=== PATIENT | male | born 1985 | race Caucasian/White ===

== ENCOUNTER 2019-09-08 15:44 | Emergency (ER) | payer OTHER ==
[~2019-09-08] VITALS: Ht 170.2 cm; Wt 86.2 kg
[~2019-09-08 15:44] MED LIST: ACETAMINOPHEN-1 EAC1 PO; AUGMENTIN 875-1 EACH PO; CELEXA10 MG PO; CLEOCIN HCL150 MG PO; CLEOCIN HCL300 MG PO; DICLOFENAC SODI75 MG PO; HYDROCODONE-AP1 EAC6 PO; IBUPROFEN 800800 M1 PO; LIDOCAINE VISC100 M1 SWISH&SPIT; ROBAXIN 750 MG750 M1 PO; WELLBUTRIN SR100 MG PO
[2019-09-08 15:50] VITALS: BP 113/75
[2019-09-08] MEDS ORDERED: LIDOCAINE VISC100 ML SWISH&SPIT (16:27)
[2019-09-08] MEDS ORDERED: AMOXICILLIN 50500 MG PO (16:27)
== END 2019-09-08 16:44 | disposition home or self-care (01) ==
LOC: M.ERS 15:44
DX: K04.7 Periapical abscess without sinus (principal); G89.29 Other chronic pain; M54.9 Dorsalgia, unspecified; M19.90 Unspecified osteoarthritis, unspecified site; F17.200 Nicotine dependence, unspecified, uncomplicated

== ENCOUNTER 2019-11-06 20:43 | Emergency (ER) | payer OTHER ==
[~2019-11-06] VITALS: Ht 170.2 cm; Wt 83.9 kg
[~2019-11-06 20:43] MED LIST changes: +AMOXICILLIN 50500 MG PO; +LIDOCAINE VISC100 ML SWISH&SPIT
[2019-11-06] MEDS ORDERED: TYLENOL WITH CO1 TA1 PO (22:17)
[2019-11-06] MEDS ORDERED: MELOXICAM15 MG PO (22:17)
[2019-11-06 22:58] VITALS: BP 102/67
== END 2019-11-06 22:58 | disposition home or self-care (01) ==
LOC: M.ERS 20:43
DX: S93.691A Other sprain of right foot, initial encounter (principal); G89.29 Other chronic pain; M54.9 Dorsalgia, unspecified; M19.90 Unspecified osteoarthritis, unspecified site; V43.52XA Car driver injured in collision with other type car in traffic accident, initial encounter; Y92.89 Other specified places as the place of occurrence of the external cause; Y93.89 Activity, other specified; Y99.8 Other external cause status

== ENCOUNTER 2019-11-10 19:37 | Emergency (ER) | payer OTHER ==
[~2019-11-10] VITALS: Ht 170.2 cm; Wt 84.4 kg
[~2019-11-10 19:37] MED LIST changes: +MELOXICAM15 MG PO; +TYLENOL WITH CO1 TA1 PO
[2019-11-10] MEDS ORDERED: NORCO 5-325 TA1 EAC1 PO (20:40)
[2019-11-10 20:51] VITALS: BP 124/66
== END 2019-11-10 20:51 | disposition home or self-care (01) ==
LOC: M.ERS 19:37
DX: M79.671 Pain in right foot (principal); M25.551 Pain in right hip; M25.561 Pain in right knee; G89.29 Other chronic pain; M54.9 Dorsalgia, unspecified; M19.90 Unspecified osteoarthritis, unspecified site; F17.200 Nicotine dependence, unspecified, uncomplicated

== ENCOUNTER 2020-03-17 18:03 | Emergency (ER) | payer OTHER ==
[~2020-03-17] VITALS: Ht 170.2 cm; Wt 83.9 kg
[~2020-03-17 18:03] MED LIST changes: +NORCO 5-325 TA1 EAC1 PO
[2020-03-17] MEDS ORDERED: CLEOCIN HCL150 MG PO (18:20)
[2020-03-17 18:24] VITALS: BP 145/83
== END 2020-03-17 18:25 | disposition home or self-care (01) ==
LOC: M.ERS 18:03
DX: K04.7 Periapical abscess without sinus (principal); G89.29 Other chronic pain; M19.90 Unspecified osteoarthritis, unspecified site; M19.019 Primary osteoarthritis, unspecified shoulder; Z79.899 Other long term (current) drug therapy

== ENCOUNTER 2020-03-20 22:40 | Emergency (ER) | payer OTHER ==
[~2020-03-20] VITALS: Ht 170.2 cm; Wt 88.5 kg
[2020-03-20 22:54] VITALS: BP 109/70
[2020-03-20 23:28] LABS: URINE BLOOD 3+ (Negative); URINE CLARITY CLEAR; URINE COLOR YELLOW; URINE GLUCOSE-RANDOM NEGATIVE (Negative); URINE KETONES NEGATIVE (Negative); URINE LEUKOCYTES-REFLEX NEGATIVE (Negative); URINE NITRITE-REFLEX NEGATIVE (Negative); URINE PROTEIN 2+ (Negative); URINE SPECIFIC GRAVITY >= 1.030 (1.005-1.030)
[2020-03-20 23:30] LABS: ICTOTEST (BILI CONFIRMATORY) Negative (Negative); URINE BILIRUBIN 1+ (Negative)
[2020-03-20 23:35] LABS: SQUAMOUS 0-3 Few /LPF (0-3); URINE RBC >20 Many /HPF (0-2); URINE WBC-REFLEX 6-15 Few /HPF (0-5)
[2020-03-20 23:36] LABS: BACTERIA-REFLEX 1-9 Few /HPF (None Seen); CASTS None Seen /LPF (None Seen); CRYSTALS None Seen /LPF (None Seen)
[2020-03-20 23:38] LABS: AMP/METHAMP Negative (Negative); BARBITURATES Negative (Negative); BENZODIAZEPINES Negative (Negative); COCAINE Negative (Negative); METHADONE Negative (Negative); OPIATES Negative (Negative); PCP Negative (Negative); THC Negative (Negative)
== END 2020-03-21 08:08 | disposition home or self-care (01) ==
LOC: M.ERS 22:40
PROVIDERS: Emergency Medicine
DX: N20.1 Calculus of ureter (principal); M54.9 Dorsalgia, unspecified; G89.29 Other chronic pain

== ENCOUNTER 2020-04-06 20:24 | Emergency (ER) | payer OTHER ==
[~2020-04-06] VITALS: Ht 170.2 cm; Wt 86.2 kg
[2020-04-06] MEDS ORDERED: HYDROCODONE 7.5/325 PO (20:39)
[2020-04-06] MEDS ORDERED: ZOFRAN4 MG PO (20:39)
[2020-04-06] MEDS ORDERED: TORADOL 10 MG T10 MG PO ×2 (20:40→22:10)
[2020-04-06 20:50] LABS: ABSOLUTE EOSINOPHILS 0.1 thou/uL (0.0-0.7); ABSOLUTE LYMPHOCYTES 1.5 thou/uL (0.8-5.3); ABSOLUTE MONOCYTES 0.6 thou/uL (0.0-1.2); ABSOLUTE NEUTROPHILS 9.2 thou/uL (1.6-8.1); BASOPHILS 0.3 %; EOSINOPHILS 0.7 %; HEMATOCRIT 41.1 % (42.0-52.0); HEMOGLOBIN 14.4 gm/dL (14.0-18.0); LYMPHOCYTES 13.2 %; MCH 34.2 pg (26.0-34.0); MCV 97.6 fL (80.0-100.0); MONOCYTES 5.4 %; MPV 8.3 fl. (7.2-11.1); NUCLEATED RBCS 0 /100WBC; PLATELET COUNT* 261 thou/uL (150-400); POLYS 80.4 %; RBC 4.21 mil/uL (4.50-6.00); RDW-CV 12.8 % (10.5-14.5); WBC 11.4 thou/uL (4.0-11.0)
[2020-04-06 21:01] LABS: URINE BLOOD 3+ (Negative); URINE CLARITY TURBID; URINE COLOR YELLOW; URINE GLUCOSE-RANDOM NEGATIVE (Negative); URINE KETONES NEGATIVE (Negative); URINE LEUKOCYTES-REFLEX NEGATIVE (Negative); URINE NITRITE-REFLEX NEGATIVE (Negative); URINE PROTEIN TRACE (Negative); URINE SPECIFIC GRAVITY >= 1.030 (1.005-1.030); URINE UROBILINOGEN 0.2 E.U./dl (0.2-1.0)
[2020-04-06 21:02] LABS: URINE BILIRUBIN 1+ (Negative)
[2020-04-06 21:03] LABS: ICTOTEST (BILI CONFIRMATORY) Positive (Negative)
[2020-04-06 21:04] LABS: CALCIUM 8.6 mg/dL (8.5-10.1); CREATININE 1.4 mg/dL (0.6-1.3); POTASSIUM 3.9 mmol/L (3.5-5.1)
[2020-04-06 21:06] LABS: BACTERIA-REFLEX 1-9 Few /HPF (None Seen); CASTS None Seen /LPF (None Seen); MUCUS 0-3 Light strn/LPF (None Seen); SQUAMOUS 0-3 Few /LPF (0-3); URINE RBC 3-10 Few /HPF (0-2); URINE WBC-REFLEX 0-5 Rare /HPF (0-5)
[2020-04-06 21:07] LABS: AMORPHOUS URATES Many /LPF (None Seen)
[2020-04-06 21:09] LABS: TOTAL BILIRUBIN 0.3 mg/dL (<0.1-1.0); TOTAL PROTEIN 7.6 g/dL (6.4-8.2)
[2020-04-06] MEDS ORDERED: DIAZEPAM 5 MG5 MG PO (22:10)
[2020-04-06] MEDS ORDERED: FLOMAX0.4 MG PO (22:10)
[2020-04-06 23:14] VITALS: BP 101/65
== END 2020-04-06 23:16 | disposition home or self-care (01) ==
LOC: M.ERS 20:24
PROVIDERS: Personal Emergency Response Attendant
DX: N20.0 Calculus of kidney (principal); R11.2 Nausea with vomiting, unspecified; M19.90 Unspecified osteoarthritis, unspecified site; G89.29 Other chronic pain

== ENCOUNTER 2020-08-04 15:44 | Emergency (ER) | payer OTHER ==
[~2020-08-04] VITALS: Ht 170.2 cm; Wt 86.2 kg
[~2020-08-04 15:44] MED LIST changes: +DIAZEPAM 5 MG5 MG PO; +FLOMAX0.4 MG PO; +HYDROCODONE 7.5/325 PO; +TORADOL 10 MG T10 MG PO; +ZOFRAN4 MG PO
[2020-08-04 16:41] LABS: INFLUENZA A ANTIGEN Negative (Negative); INFLUENZA B ANTIGEN Negative (Negative)
[2020-08-04 17:13] VITALS: BP 132/78
== END 2020-08-04 16:50 | disposition home or self-care (01) ==
LOC: M.ERS 15:44
PROVIDERS: Family Medicine
DX: U07.1 COVID-19 (principal); G89.29 Other chronic pain; M13.819 Other specified arthritis, unspecified shoulder

== ENCOUNTER 2021-04-09 20:03 | Emergency (ER) | payer OTHER ==
[~2021-04-09] VITALS: Ht 170.2 cm; Wt 87.1 kg
[2021-04-09] MEDS ORDERED: IBUPROFEN 800800 M1 PO (21:06)
[2021-04-09 21:22] VITALS: BP 114/70
== END 2021-04-09 21:22 | disposition home or self-care (01) ==
LOC: M.ERS 20:03
DX: S60.221A Contusion of right hand, initial encounter (principal); Z87.442 Personal history of urinary calculi; W23.0XXA Caught, crushed, jammed, or pinched between moving objects, initial encounter; Y93.89 Activity, other specified; Y92.89 Other specified places as the place of occurrence of the external cause; Y99.8 Other external cause status